=== PATIENT | female | born 1940 | race Caucasian/White ===

== ENCOUNTER → 2019-08-19 13:28 | Outpatient (CLI) | payer MEDICARE ==
--- NOTE | 2019-08-22 13:51 | EC ---
PATIENT:BALTA YUSUF DATE OF SERVICE: 08/19/19 SEX: F MEDICAL RECORD: [id number] DATE OF : 38 LOCATION:[facility] AGE OF PATIENT: 79 ADMISSION DATE: 08/19/19 REFERRING PHYSICIAN: INTERPRETING PHYSICIAN: GEOFF MONTANO MD ECHOCARDIOGRAM REPORT ECHO CHARGES 4 ECHO COMPLETE Date: 08/19/19 CLINICAL DIAGNOSIS: CARDIAC ARRHYTHMIA ECHOCARDIOGRAPHIC MEASUREMENTS (adult normal given) AC root (d.<3.7cm) 2.8 cm LV Septum d (<1.2 cm> 0.80 cm Valve Excursion 1.2 cm LV Septum (systole) 1.1 cm Left Atria (s.<4.0cm> 13.8 cm LVPW d(<1.2cm) 1.2 cm RV (d.<2.3cm) 3.2 cm LVPW (sytole) 1.3 cm LV diastole(<5.6CM) 4.2 cm MV E-F(>70mm/sec) cm LV systole 2.9 cm LVOT Diameter 1.8 cm MV exc.(>10mm) 1.2 cm Est.ejection fraction (50-75%) % DOPPLER: LVIT cm/sec A 104 cm/sec E 92.0 cm/sec LA cm/sec RVSP 35 mmHg LVOT 87 cm/sec AOP1/2T m/s Asc. Ao 135 cm/sec RVOT 71 cm/sec RA cm/sec PA cm/sec AV Gradient Peak 7.27 mmHg AV Mean 4.54 mmHg AV Area 1.7 cm MV Gradient Peak 5.85 mmHg MV Mean 2.19 mmHg MV Area cm COMMENTS: Monotypist: 2 MALAIKA MCCAULEY Payroll Technician: 3 Dr. Dixon TAPE# PACS Pericardial Effusion N DATE OF SERVICE: 08/19/2019 Adequate 2D, Color Flow, Spectral Doppler, and M-mode No LVH. LV internal dimension is normal. Wall motion is normal. EF is greater than or equal to 55%. Aortic valve is tricuspid. No evidence of stenosis by Doppler interrogation. Left atrium is normal size shows no prolapse. Trace MR. Right-sided chambers are grossly normal. Trace TR. TRANSINT:[id number] Voice Confirmation ID: [id number] DOCUMENT ID: [id number] ECHOCARDIOGRAM REPORT [id number] BALTA YUSUF GEOFF MONTANO MD at 1351 CC: [id number] DICTATION DATE: 08/21/19 1430 MICROARRAY SPECIALIST: 08/21/19 2156 DEP CLI 08/19/19 [id number] [place] [address]
== END | disposition home or self-care (01) ==
LOC: D.HCCECHO 13:28 → D.HCCARDIO 14:00 → D.HCCECHO 14:00
PROVIDERS: ATTEND Internal Medicine Interventional Cardiology
DX: I49.9 Cardiac arrhythmia, unspecified (principal)